=== PATIENT | female | born 1990 | race American Indian/Alaskan Native ===

== ENCOUNTER 2016-12-13 20:44 | Emergency (ER) | payer MEDICAID ==
[2016-12-13 21:02] VITALS: BMI 28.2
[2016-12-13 21:05] VITALS: BP 100/65; PULSE 130; RESP 18; TEMP 100.9; O2SAT 100
--- NOTE | 2016-12-13 21:23 | ED PDOC ---
Arrival/HPI - General Chief Complaint: Flu-like Symptoms Time Seen by Provider: 12/13/16 21:07 Historian: Patient - History of Present Illness Narrative History of Present Illness (Text): 12/13/16 21:19 26 y.o. female who is (patient is unsure of how far along she is as she never got her menses between pregnancies) who otherwise denies any other pmhx who comes to the ED with complaint of one day of sore throat, b/L ear fullness and ear pain with mild headache. No n/v or sob and cough is minimal. Patient with subjective fever. No vomiting or abd pain or urinary symptoms. Past Medical History - Infectious Disease Hx of Infectious Diseases: None - Tetanus Immunization Tetanus Immunization: Up to Date - Past Medical History Past Medical History: No Previous - Cardiac Hx Cardiac Disorders: No - Pulmonary Hx Respiratory Disorders: No - Neurological Hx Neurological Disorder: No - HEENT Hx HEENT Disorder: No - Renal Hx Renal Disorder: No - Endocrine/Metabolic Hx Endocrine Disorders: No - Hematological/Oncological Hx Blood Disorders: No - Integumentary Hx Dermatological Disorder: No - Musculoskeletal/Rheumatological Hx Musculoskeletal Disorders: No - Gastrointestinal Hx Gastrointestinal Disorders: No - Genitourinary/Gynecological Hx Genitourinary Disorders: No - Psychiatric Hx Psychophysiologic Disorder: No Hx Substance Use: No - Past Surgical History Past Surgical History: No Previous - Anesthesia Hx Anesthesia: No - Suicidal Assessment Feels Threatened In Home Enviroment: No Family/Social History Family/Social History: No Known Family HX Smoking Status: Never Smoked Hx Alcohol Use: No Hx Substance Use: No Hx Substance Use Treatment: No Allergies/Home Meds Allergies/Adverse Reactions: Allergies No Known Allergies Allergy (Verified 07/29/14 18:50) Review of Systems - Review of Systems Constitutional: Fevers Eyes: Normal ENT: Sore Throat, Rhinorrhea (mild, seasonal allergies), Other (ear pain) Respiratory: Cough. absent: SOB Cardiovascular: Normal. absent: Chest Pain Gastrointestinal: absent: Abdominal Pain, Vomiting Genitourinary Female: absent: Dysuria Skin: absent: Rash Neurological: Headache. absent: Dizziness Physical Exam Vital Signs Temp Pulse Resp BP Pulse Ox 12/13/16 21:04 100.9 F H 130 H 18 100/65 100 Temperature: Febrile Blood Pressure: Normal Pulse: Tachycardic Respiratory Rate: Normal Appearance: Positive for: Well-Appearing, Non-Toxic, Comfortable Pain Distress: None Mental Status: Positive for: Alert and Oriented X 3 - Systems Exam Head: Present: Atraumatic, Normocephalic Pupils: Present: PERRL Ears: Present: Normal, NORMAL TM, Normal Canal. No: Erythema Mouth: Present: Moist Mucous Membranes Pharnyx: Present: Normal. No: ERYTHEMA, EXUDATE, TONSILS ENLARGED Neck: Present: Normal Range of Motion Respiratory/Chest: Present: Clear to Auscultation, Good Air Exchange. No: Respiratory Distress, Accessory Muscle Use Cardiovascular: Present: Regular Rate and Rhythm, Normal S1, S2. No: Murmurs Abdomen: Present: Normal Bowel Sounds. No: Tenderness, Distention, Peritoneal Signs Upper Extremity: Present: Normal Inspection. No: Cyanosis, Edema Lower Extremity: Present: Normal Inspection. No: Edema Neurological: Present: GCS=15, CN II-XII Intact, Speech Normal Skin: Present: Warm, Dry, Normal Color. No: Rashes Psychiatric: Present: Alert, Oriented x 3, Normal Insight, Normal Concentration Medical Decision Making ED Course and Treatment: 12/13/16 21:27 Patient with noted history of ear pain , sore throat, and mild rhinorrhea. Differential: URI vs. sinusitis Plan: Given ear pain and fullness with the sore throat, and headache, sinusitis is suspected. Centor criteria is 1/4, so doubt strep. Given possible sinusitis and , will give amoxicillin and tylenol and she will f/u her pmd and obgyn. - Medication Orders Current Medication Orders: Discontinued Medications Acetaminophen (Tylenol 325mg Tab) 975 mg PO STAT STA Stop: 12/13/16 21:09 Disposition/Present on Arrival - Present on Arrival Any Indicators Present on Arrival: No History of DVT/PE: No History of Uncontrolled Diabetes: No Urinary Catheter: No History of Decub. Ulcer: No History Surgical Site Infection Following: None - Disposition Have Diagnosis and Disposition been Completed?: Yes Diagnosis: Pharyngitis Disposition: HOME/ ROUTINE Disposition Time: 21:40 Patient Plan: Discharge Condition: GOOD Additional Instructions: Continue nasonex. Take zyrtec and amoxicillin as prescribed. Tylenol for fever and drink plenty of fluids. Follow up with your pmd or medical clinic. Start vitamins and f/u your OBGYN. Prescriptions: Amoxicillin [Amoxil 500 mg Cap] 1 cap PO TID #30 cap Cetirizine HCl [Zyrtec] 1 tab PO DAILY PRN #30 capsule PRN Reason: Allergy Symptoms Vit Calc,Iron,Folic [ Vitamins] 1 tab PO DAILY #120 tablet Referrals: [facility] [Outside] - Follow up with primary
== END 2016-12-13 21:49 | disposition home or self-care (01) ==
LOC: ED 20:44
DX: J02.9 Acute pharyngitis, unspecified (principal)